=== PATIENT | male | born 1955 | race Caucasian/White ===

== ENCOUNTER 2023-10-02 14:42 | Emergency (ER) | payer OTHER, MEDICAID ==
[~2023-10-02] VITALS: Ht 182.9 cm; Wt 87.0 kg
[2023-10-02 14:43] VITALS: TEMP 98; O2SAT 99
[2023-10-02] MEDS ORDERED: LIDOCAINE HCL/EPINEPHRINE 1%-EPI 1:100,000 50 ML VIAL INFIL ONE (16:15)
[2023-10-02] MEDS ORDERED: LIDOCAINE HCL/EPINEPHRINE 1%-EPI 1:100,000 20 ML VIAL INFIL NR (16:15)
[2023-10-02] MEDS: TETANUS, DIPHTHERIA, PERTUSSIS VAC/PF 0.5ML (>10YR OLD) IM ONE (16:45)
[2023-10-02 18:00] VITALS: BP 122/60; PULSE 57; RESP 18
== END 2023-10-02 18:12 | disposition home or self-care (01) ==
LOC: ER 14:42
DX: S01.81XA Laceration without foreign body of other part of head, initial encounter (principal); Z88.0 Allergy status to penicillin; W18.30XA Fall on same level, unspecified, initial encounter; Y93.89 Activity, other specified; Y92.89 Other specified places as the place of occurrence of the external cause; Y99.8 Other external cause status
CPT/HCPCS: 12014; 90471; 90715; 99285